=== PATIENT | male | born 1960 | race African-American/Black ===

== ENCOUNTER 2018-09-19 16:56 | Inpatient (IN) | payer MEDICAID ==
[~2018-09-19] VITALS: Ht 182.9 cm; Wt 72.6 kg
--- NOTE | 2018-09-19 17:13 | NUR ---
BIB FAMILY W C/O L KNEE UP TO L HIP/PELVIS PAIN THAT STARTED LAST NIGHT, "WORSE NOW CAN'T MOVE". ALSO W C/O DIARRHEA/LOSING WEIGHT/DIFFICULTY URINATING x 1 MONTH. TO ER BED 9, HOOKED TO MONITOR, CHANGED TO GOWN, PROVIDED W WARM BLANKET, AWAITING MD GÓMEZ.
--- NOTE | 2018-09-19 17:20 | NUR ---
FLAKE DRIER DEGRASSE AT BEDSIDE
[2018-09-19] MEDS ORDERED: ONDANSETRON HCL/PF 4 MG/2 ML VIAL IVP ONE (17:30)
[2018-09-19] MEDS ORDERED: IV NS 0.9% 1,000 ML BAG IV ONE (17:30)
[2018-09-19] MEDS ORDERED: MORPHINE SULFATE INJ 2 MG/ML DISP.SYRIN IV ONE (17:30)
[2018-09-19] MEDS ORDERED: ONDANSETRON HCL/PF 4 MG/2 ML VIAL ONE (17:32)
[2018-09-19] MEDS ORDERED: MORPHINE SULFATE INJ 4 MG/ML DISP.SYRIN ONE (17:32)
[2018-09-19] MEDS ORDERED: KETOROLAC TROMETHAMINE INJ 30 MG/ML VIAL ONE (17:33)
[2018-09-19 17:37] LABS: BASOPHILS % (AUTO) 0.6 % (0.0-2.0); EOSINOPHILS % (AUTO) 0.2 % (0.0-6.0); HEMATOCRIT 36 % (39-51); HEMOGLOBIN 12.4 g/dL (13.5-17.5); LYMPHOCYTES # (AUTO) 0.7 /CMM (0.8-4.8); LYMPHOCYTES % (AUTO) 12.8 % (20.0-44.0); MEAN CORPUSCULAR HGB CONC 34 g/dl (31.0-36.0); MEAN CORPUSCULAR VOLUME 78 fL (80-96); MONOCYTES # (AUTO) 0.6 /CMM (0.1-1.30); NEUTROPHILS # (AUTO) 4.5 /CMM (1.8-8.9); NEUTROPHILS % (AUTO) 76.4 % (43.0-81.0); PLATELET COUNT (AUTO) 314 /CMM (150-450); RED BLOOD CELL COUNT(AUTO) 4.67 MIL/uL (4.5-6.0); WHITE BLOOD COUNT (AUTO) 5.8 K/uL (4.3-11.0)
[2018-09-19 17:44] LABS: CALCIUM, SERUM 8.2 mg/dL (8.5-10.1); CARBON DIOXIDE 25 mmol/L (21-32); CHLORIDE 94 mmol/L (98-107); CREATININE 0.9 mg/dL (0.6-1.3); GLUCOSE 147 mg/dL (74-106); POTASSIUM 3.7 mmol/L (3.5-5.1); SODIUM SERUM 129 mmol/L (136-145); UREA NITROGEN, BLOOD 15 mg/dL (7-18)
[2018-09-19 17:49] LABS: ALANINE AMINOTRANSFERASE 122 U/L (12-78); ALBUMIN 2.3 g/dL (3.4-5.0); ALKALINE PHOSPHATASE 86 U/L (46-116); ASPARTATE AMINOTRANSFERASE 94 U/L (15-37); BILIRUBIN,DIRECT 0.1 mg/dL (0.0-0.2); BILIRUBIN,TOTAL 0.4 mg/dL (0.2-1.0); TOTAL PROTEIN, SERUM 6.9 g/dL (6.4-8.2)
[2018-09-19] MEDS ORDERED: KETOROLAC TROMETHAMINE INJ 30 MG/ML VIAL IV ONE (18:00)
[2018-09-19] MEDS ORDERED: IV NS 0.9% 250 ML IV ONE (18:00)
[2018-09-19] MEDS ORDERED: CT SWABBABLE VALVE TRANS SET 1 EA INFUS.SET MC ONE (18:00)
[2018-09-19 18:14] LABS: BILIRUBIN,URINE SMALL (NEGATIVE); BLOOD, URINE Negative Ery/uL (NEGATIVE); KETONES,URINE Negative (NEGATIVE); LEUKOCYTE ESTERASE ,URINE Negative (NEGATIVE); NITRITE, URINE Negative (NEGATIVE); PH,URINE 5.5 (5.0-8.0); PROTEIN,URINE 100 mg/dl (NEGATIVE); UGLUCOSE 250 MG/DL mg/dL (NEGATIVE)
[2018-09-19 18:17] LABS: APPEARANCE,URINE HAZY (CLEAR); COLOR,URINE DARK YELLOW (YELLOW)
[2018-09-19 18:30] LABS: BACTERIA,URINE Few /HPF (None Seen); RBC,URINE 0-2 /HPF (0-2); SQUAMOUS EPITHELIAL CELL,UR Few /HPF (None Seen); WBC,URINE 0-2 /HPF (0-3)
[2018-09-19] MEDS ORDERED: HYDROMORPHONE 1 MG/1 ML DISP.SYRIN IV ONE (18:30)
[2018-09-19] MEDS ORDERED: HYDROMORPHONE 1 MG/1 ML DISP.SYRIN ONE (18:31)
[2018-09-19] MEDS ORDERED: VANCOMYCIN 1 GM VIAL ONE (18:57)
[2018-09-19] MEDS ORDERED: PIPERACILLIN /TAZOBACTAM 3.375 G VIAL IV ONE (18:57)
[2018-09-19] MEDS ORDERED: VANCOMYCIN 1 GM in IV D5W 250 ML IV ONE (19:00)
[2018-09-19] MEDS ORDERED: PIPERACILLIN /TAZOBACTAM 3.375 G in IV D5W 50 ML IV ONE (19:00)
[2018-09-19] MEDS ORDERED: LIDOCAINE HCL/PF 1% 30 ML SDV ONE (19:03)
--- NOTE | 2018-09-19 19:32 | NUR ---
REPORT GIVEN TO MICHELLE OREILLY FOR RODRICK
--- NOTE | 2018-09-19 19:33 | NUR ---
CALLED [employer]. SQL SSRS SSIS DEVELOPER WAS PAGED.
--- NOTE | 2018-09-19 19:56 | NUR ---
MS BED 207-2 GIVEN
[2018-09-19] MEDS ORDERED: MAGNESIUM HYDROXIDE 30 ML UDC PO PRN (20:30)
[2018-09-19] MEDS ORDERED: ACETAMINOPHEN 325 MG TABLET PO PRN (20:30)
[2018-09-19] MEDS ORDERED: Z GUARD REMEDY 2 OZ OINT TP PRN (20:30)
[2018-09-19] MEDS ORDERED: ONDANSETRON HCL/PF 4 MG/2 ML VIAL IVP PRN (20:30)
[2018-09-19] MEDS ORDERED: MAG HYDROX/AL HYDROX/SIMETH 30 ML UDC PO PRN (20:30)
--- NOTE | 2018-09-19 20:31 | NUR ---
REPORT GIVEN TO RODY OREILLY.
--- NOTE | 2018-09-19 21:00 | NUR ---
RN OPEN NOTES RECEIVED PATIENT FROM ER VIA SONJA WITH FAMILY AT BEDSIDE. A/OX4. NO SIGNS OF DISTRESS OR DISCOMFORT. BREATHING EVEN AND UNLABORED. IV ACCESS IN RAC, PATENT AND INTACT, NO SIGNS OF REDNESS OR INFILTRATION. ORIENTED PATIENT TO UNIT AND ROOM. PATIENT COMPLAINING OF PAIN 7/10 IN L HIP AND TOLERATING AT THIS TIME. BED IN LOW LOCKED POSITION WITH SIDE RAILS X2. CALL LIGHT WITHIN REACH. WILL CONTINUE TO MONITOR.
[2018-09-19] MEDS ORDERED: CEFTRIAXONE 1 G VIAL ONE (21:42)
[2018-09-19] MEDS: CEFTRIAXONE 1 G in IV D5W 50 ML IV SCH (21:54)
[2018-09-19] MEDS: HYDROCODONE/APAP 5/325MG 1 EACH TABLET PO PRN (21:55)
--- NOTE | 2018-09-19 21:55 | NUR ---
RN NOTES ADMINISTERED NORCO 5/325 ORDERED FOR L HIP PAIN 10/10 AT PATIENT REQUEST. WILL CONTINUE TO MONITOR.
[2018-09-19] MEDS: ZOLPIDEM TARTRATE 5 MG TABLET PO PRN (21:56)
[2018-09-19 22:05] VITALS: BP 122/71
[2018-09-20] MEDS ORDERED: MORPHINE SULFATE INJ 2 MG/ML DISP.SYRIN IV PRN
[2018-09-20] MEDS: HYDROCODONE/APAP 5/325MG 1 EACH TABLET PO PRN ×3 (07:00→16:43)
--- NOTE | 2018-09-20 07:15 | NUR ---
RN CLOSING NOTES PATIENT AWAKE IN BED. A/OX4. NO SIGNS OF DISTRESS OR DISCOMFORT. BREATHING EVEN AND UNLABORED. IV ACCESS IN RAC, PATENT AND INTACT, NO SIGNS OF REDNESS OR INFILTRATION. PATIENT COMPLAINING OF L HIP PAIN 12/21, ADMINISTERED NORCO 5/325. ALL NEEDS MET. NO SIGNIFICANT CHANGES THROUGH THE NIGHT. BED IN LOW LOCKED POSITION WITH SIDE RAILS X2. CALL LIGHT WITHIN REACH. ENDORSED TO AM SHIFT FOR RODRICK.
--- NOTE | 2018-09-20 07:36 | NUR ---
MS RN OPENING NOTES RECEIVED PT LAYING IN BED WITH HOB ELEVATED. PT IS A/O X4, AFEBRILE. RESPIRATIONS ARE EVEN AND UNLABORED, NOT IN ANY ACUTE DISTRESS NOTED. PT C/O PAIN 10/10 TO LEFT HIP, WILL MEDICATE ACCORDINGLY AND NOTE EFFECTIVENESS. NO REDNESS OR SWELLING NOTED. DENIES ANY SOB, N/V. IV SITE TO RFA G20 INTACT, NO INFILTRATION NOTED. DRESSING KEPT CLEAN AND DRY. SAFETY MEASURES ARE IN PLACE. AT BEDSIDE. INSTRUCTED PT TO USE CALL LIGHT WHEN ASSISTANCE IS NEEDED, CALL LIGHT IS LEFT WITHIN REACH. WILL MONITOR THROUGHOUT SHIFT FOR CONTINUITY OF CARE.
[2018-09-20 08:00] VITALS: BP 125/77
[2018-09-20] MEDS ORDERED: FEE PK DOSING 1 MIN EA MC ONE (08:07)
[2018-09-20 08:22] LABS: BASOPHILS % (AUTO) 0.2 % (0.0-2.0); EOSINOPHILS % (AUTO) 0.2 % (0.0-6.0); HEMATOCRIT 34 % (39-51); HEMOGLOBIN 11.4 g/dL (13.5-17.5); LYMPHOCYTES # (AUTO) 0.7 /CMM (0.8-4.8); LYMPHOCYTES % (AUTO) 12.3 % (20.0-44.0); MEAN CORPUSCULAR HGB CONC 34 g/dl (31.0-36.0); MEAN CORPUSCULAR VOLUME 77 fL (80-96); MONOCYTES # (AUTO) 0.4 /CMM (0.1-1.30); MONOCYTES % (AUTO) 6.7 % (2.0-12.0); NEUTROPHILS # (AUTO) 4.7 /CMM (1.8-8.9); NEUTROPHILS % (AUTO) 80.6 % (43.0-81.0); PLATELET COUNT (AUTO) 282 /CMM (150-450); RED BLOOD CELL COUNT(AUTO) 4.37 MIL/uL (4.5-6.0); WHITE BLOOD COUNT (AUTO) 5.9 K/uL (4.3-11.0)
[2018-09-20 08:48] LABS: CREATININE 0.9 mg/dL (0.6-1.3); MAGNESIUM 1.9 mg/dL (1.8-2.4); PHOSPHORUS 2.6 mg/dL (2.5-4.9); POTASSIUM 4.2 mmol/L (3.5-5.1)
[2018-09-20] MEDS: VANCOMYCIN 0.75 GM in IV D5W 250 ML IV SCH ×2 (09:32→16:41)
--- NOTE | 2018-09-20 12:20 | NUR ---
MS RN NOTES-- PT SEEN AND EXAMINED BY ANNIA OG. CT GUIDED ASPIRATION TO BE DONE TODAY. ADVANCED MANAGER AWARE AND PROCEDURE WILL BE DONE AT 2PM. PT AND MADE AWARE AT BEDSIDE AND AGREED.
--- NOTE | 2018-09-20 14:15 | NUR ---
MS RN NOTES-- PT P/U BY RADIOLOGY VIA GURNEY IN STABLE CONDITION.
[2018-09-20] MEDS: HYDROMORPHONE 1 MG/1 ML DISP.SYRIN IV PRN ×2 (14:54→20:54)
--- NOTE | 2018-09-20 15:18 | NUR ---
ICU/RN: S/P CT AND US GUIDED L HIP DRAINAGE Pt back in room, s/p procedure. Given Dilaudid 1mg IVP in CT; unable to scan; pt c/o 01/20 pain. Local anesthesia given by MD. Bedside report given to RN for RODRICK.
--- NOTE | 2018-09-20 15:18 | NUR ---
MS RN NOTES-- PT CAME BACK FROM RADIOLOGY VIA BASILIO IN STABLE CONDITION.
[2018-09-20 16:00] VITALS: BP 133/73
--- NOTE | 2018-09-20 18:47 | NUR ---
MS RN CLOSING NOTES ALL DUE MEDS GIVEN, NEEDS MET AND RENDERED. PT IS A/O X4, AFEBRILE. RESPIRATIONS ARE EVEN AND UNLABORED, NOT IN ANY ACUTE DISTRESS NOTED. PT DENIES ANY PAIN AT THIS TIME, NO C/O SOB, N/V. IV TO RFA INTACT, NO INFILTRATION NOTED. DRESSING KEPT CLEAN AND DRY. SAFETY MEASURES ARE IN PLACE. REMINDED PT TO USE CALL LIGHT WHEN ASSISTANCE IS NEEDED, CALL LIGHT IS LEFT WITHIN REACH. WILL ENDORSE TO NEXT SHIFT FOR CONTINUITY OF CARE.
--- NOTE | 2018-09-20 19:25 | NUR ---
MS RN OPENING NOTES: RECEIVED PT ON ROOM AIR AND IS TOLERATING WELL. AT BEDSIDE. NO SOB NOTED. NO S/S OF DISTRESS. PT HAS IV AND IS BEING INFUSED WITH VANCO AT 250ML/HR AT THIS TIME. BED KEPT IN LOW, LOCKED POSITION, AND SIDE RAILS X 2UP. WILL CONTINUE TO MONITOR PT.
[2018-09-20 20:29] VITALS: BP 122/71
[2018-09-20] MEDS: CEFTRIAXONE 1 G in IV D5W 50 ML IV SCH (20:37)
--- NOTE | 2018-09-20 20:59 | NUR ---
MS RN NOTES: PT COMPLAINING OF 10/10 L HIP PAIN. PT WAS ADMINISTERED DILAUDID 1MG IV. WILL CONTINUE TO MONITOR.
[2018-09-20] MEDS: ZOLPIDEM TARTRATE 5 MG TABLET PO PRN (21:17)
--- NOTE | 2018-09-20 21:30 | NUR ---
MS RN NOTES: PT REQUESTING FOR SLEEPING AID. PT WAS ADMINISTERED AMBIEN 5MG PO. WILL CONTINUE TO MONITOR.
[2018-09-21] MEDS: VANCOMYCIN 0.75 GM in IV D5W 250 ML IV SCH ×2 (00:07→08:49)
[2018-09-21] MEDS: HYDROCODONE/APAP 5/325MG 1 EACH TABLET PO PRN ×2 (00:11→16:24)
--- NOTE | 2018-09-21 00:13 | NUR ---
MS RN NOTES: PT COMPLAINING OF 5/10 L HIP PAIN. PT IS BOTHERED AND CANNOT GO TO SLEEP EVEN AFTER THE AMBIEN. PT WAS ADMINISTERED NORCO 5 PO. WILL CONTINUE TO MONITOR.
[2018-09-21 06:58] LABS: CREATININE 0.7 mg/dL (0.6-1.3); POTASSIUM 4.1 mmol/L (3.5-5.1)
--- NOTE | 2018-09-21 07:24 | NUR ---
MS RN CLOSING NOTES: PT IN BED AND ON HIS PHONE. AT BEDSIDE. IV REMAINS INTACT AND IS CURRENTLY BEING INFUSED WITH IV NS AT TKO. PAIN MANAGED AT THIS TIME. BED KEPT IN LOW, LOCKED POSITION, AND SIDE RAILS X2UP. ENDORSED TO AM NURSE FOR RODRICK.
--- NOTE | 2018-09-21 07:33 | NUR ---
MS RN OPENING NOTES RECEIVED PT LAYING IN BED WITH HOB ELEVATED. PT IS A/O X4, AFEBRILE. RESPIRATIONS ARE EVEN AND UNLABORED, NOT IN ANY ACUTE DISTRESS NOTED. PT DENIES ANY PAIN AT THIS TIME, DENIES ANY SOB, N/V. IV SITE TO RFA G20 INTACT, NO INFILTRATION NOTED. DRESSING KEPT CLEAN AND DRY. SAFETY MEASURES ARE IN PLACE. AT BEDSIDE. INSTRUCTED PT TO USE CALL LIGHT WHEN ASSISTANCE IS NEEDED, CALL LIGHT IS LEFT WITHIN REACH. WILL MONITOR THROUGHOUT SHIFT FOR CONTINUITY OF CARE.
[2018-09-21 08:00] VITALS: BP 127/73
[2018-09-21] MEDS: HYDROMORPHONE 1 MG/1 ML DISP.SYRIN IV PRN ×2 (09:00→23:28)
--- NOTE | 2018-09-21 10:00 | NUR ---
MS RN NOTES-- PT SEEN BY PHYSICAL THERAPY, PT ABLE TO WALK IN HALLWAY WITH FWW.
--- NOTE | 2018-09-21 12:24 | NUR ---
MS RN NOTES-- PT ABLE TO MAKE NEEDS KNOWN, NEEDS MET AND RENDERED. PT IS NOT IN ANY APPARENT DISTRESS NOTED. WILL CONTINUE TO MONITOR.
--- NOTE | 2018-09-21 14:26 | NUR ---
TEXTED DR. GOOD FOR MRI L SPINE APPROVAL.
[2018-09-21 16:00] VITALS: BP 112/60
[2018-09-21] MEDS: VANCOMYCIN 1 GM in IV D5W 250 ML IV SCH (16:24)
[2018-09-21] MEDS: LACTOBACILLUS RHAMNOSUS GG 1 EACH CAP.SPRINK PO SCH (16:24)
--- NOTE | 2018-09-21 17:30 | NUR ---
MS RN NOTES-- MRI WWO CONTRAST CONSENTS SIGNED. NOTIFIED RADIOLOGY.
--- NOTE | 2018-09-21 19:36 | NUR ---
MS RN OPENING NOTES: PT STILL IN MRI. AT BEDSIDE WAITING FOR PT TO COME BACK.
[2018-09-21 20:33] VITALS: BP 121/72
--- NOTE | 2018-09-21 20:33 | NUR ---
MS OREILLY NOTES: PT BACK FROM MRI. Addendum: 09/21/18 at 2333 by BRITTNY WRIGHT RN PT IS A/X04. IV REMAINS INTACT. CURRENTLY H/L. NO SOB. NO S/S OF DISTRESS. 2 FAMILY MEMBERS AT BEDSIDE. BED KEPT IN LOW, LOCKED POSITION, AND SIDE RAILS X 2UP. WILL CONTINUE TO MONITOR PT .
--- NOTE | 2018-09-21 21:10 | NUR ---
MS RN NOTES: INFORMED EXAMINATION PROCTOR MIRYAM MENDES THAT PT REQUESTING FOR SHOWER. PT AMBULATED WITH PT TODAY AND IS USING WALKER NOW. OK TO SHOWER ONLY WITH ASSIST. NOTIFIED PT WELL AND .
[2018-09-21] MEDS: CEFTRIAXONE 1 G in IV D5W 50 ML IV SCH (21:12)
--- NOTE | 2018-09-21 21:20 | NUR ---
MS RN NOTES: PT CHANGED MIND AND WOULD LIKE TO SHOWER TOMORROW AM INSTEAD HE IS EXHAUSTED FROM MRI.
--- NOTE | 2018-09-21 21:40 | NUR ---
MS RN NOTES: PT GIVEN PRUNE JUICE HE FEELS CONSTIPATED. PT GIVEN 3 PRUNE JUICE.
--- NOTE | 2018-09-21 23:31 | NUR ---
MS RN NOTES: PT WAKING UP STARTED COMPLAINING OF 8/10 L HIP PAIN. PT WAS ADMINISTERED DILAUDID 1MG IV. WILL CONTINUE TO MONITOR.
[2018-09-21] MEDS: ZOLPIDEM TARTRATE 5 MG TABLET PO PRN (23:56)
--- NOTE | 2018-09-22 | NUR ---
MS RN NOTES: PT REQUESTING FOR SLEEPING PILL PAIN IS NOT SUBSIDING. PT ADMINISTERED AMBIEN 5MG PO. WILL CONTINUE TO MONITOR.
[2018-09-22] MEDS: VANCOMYCIN 1 GM in IV D5W 250 ML IV SCH ×2 (00:41→08:49)
[2018-09-22] MEDS: HYDROCODONE/APAP 5/325MG 1 EACH TABLET PO PRN ×2 (00:50→19:48)
--- NOTE | 2018-09-22 03:42 | NUR ---
MS OREILLY OPENING NOTES Received patient A/O x4, awake on semi-Mayers's position on bed. With patent peripheral IV line LAC G#18, SL. With minimal pain on L hip, refused to take medicine at this time. Instructed patient about his pain medications, its frequency, availability and indications. Patient verbalized understanding. With urinal at bedside. On fall precautions, call light within easy reach. Will continue to monitor accordingly. Addendum: 09/23/18 at 0345 by PETRA JAVIER RN wrong date and time.
--- NOTE | 2018-09-22 06:21 | NUR ---
MS RN CLOSING NOTES: ALL NEEDS WERE ATTENDED AND ANTICIPATED FOR. PT RESTING IN BED COMFORTABLY AT THIS TIME WATCHING TELEVISION. NO SOB NOTED. NO S/S OF DISTRESS. IV REMAINS INTACT. CURRENTLY H/L. BED KEPT IN LOW, LOCKED POSITION, AND SIDE RAILS X 2UP. INSTRUCTED PT TO USE CALL LIGHT FOR ASSISTANCE. WILL ENDORSE TO AM NURSE FOR RODRICK.
[2018-09-22 06:51] LABS: BASOPHILS % (AUTO) 0.3 % (0.0-2.0); EOSINOPHILS % (AUTO) 1.4 % (0.0-6.0); HEMATOCRIT 36 % (39-51); HEMOGLOBIN 12.3 g/dL (13.5-17.5); LYMPHOCYTES # (AUTO) 1.4 /CMM (0.8-4.8); LYMPHOCYTES % (AUTO) 27.5 % (20.0-44.0); MEAN CORPUSCULAR HGB CONC 34 g/dl (31.0-36.0); MEAN CORPUSCULAR VOLUME 78 fL (80-96); MONOCYTES # (AUTO) 0.6 /CMM (0.1-1.30); MONOCYTES % (AUTO) 11.1 % (2.0-12.0); NEUTROPHILS % (AUTO) 59.7 % (43.0-81.0); PLATELET COUNT (AUTO) 387 /CMM (150-450); RED BLOOD CELL COUNT(AUTO) 4.65 MIL/uL (4.5-6.0)
[2018-09-22 07:07] LABS: CALCIUM, SERUM 8.4 mg/dL (8.5-10.1); CREATININE 0.7 mg/dL (0.6-1.3); MAGNESIUM 2.2 mg/dL (1.8-2.4); PHOSPHORUS 4.1 mg/dL (2.5-4.9); POTASSIUM 4.5 mmol/L (3.5-5.1)
--- NOTE | 2018-09-22 07:30 | NUR ---
MS RN OPENING NOTE RECEIVED PT IN BED, ALERT AND ORIENTED X4, DENIES CHEST PAIN, N/V, BREATHING IS EVEN AND UNLABORED ON ROOM AIR. NO ACUTE DISTRESS NOTED AT THIS TIME. RIGHT AC #18G IS SALINE LOCKED WITHOUT REDNESS OR SWELLING. ALL NEEDS ATTENDED TO. FIANCE AT THE BEDSIDE. BED IS LOCKED AND IN LOWEST POSITION, SIDE RAILS UP X2, BED ALARM ON, CALL LIGHT AND POSSESSIONS WITHIN REACH.
[2018-09-22 08:00] VITALS: BP 108/64
[2018-09-22] MEDS: LACTOBACILLUS RHAMNOSUS GG 1 EACH CAP.SPRINK PO SCH ×2 (08:49→17:35)
--- NOTE | 2018-09-22 11:00 | NUR ---
MS RN NOTE CHUNG MORALES PROVIDED CONTACT INFORMATION FOR HERSELF ([phone]) AND PT BROTHER CAR REA ([phone]) AND STATED TO CALL EITHER FOR QUESTIONS OR CONCERNS SINCE SHE WILL BE RETURNING TO [place] FOR WORK. PER CHUNG SHE DOES NOT WANT PT TO HAVE ANY MORE CONTRAST FOR IMAGING ADMINISTERED ANYMORE. EDUCATION PROVIDED. PLACED INFORMATION IN CHART.
[2018-09-22] MEDS ORDERED: CT SWABBABLE VALVE TRANS SET 1 EA INFUS.SET MC ONE (11:56)
[2018-09-22] MEDS ORDERED: IV NS 0.9% 250 ML IV ONE (11:56)
[2018-09-22] MEDS ORDERED: IOHEXOL-350 100 ML VIAL IV ONE (11:56)
--- NOTE | 2018-09-22 12:28 | NUR ---
MS RN NOTE REPORTED TO PRIMARY HOSPITALIST THAT LAB REPORTED BLOOD CX SHOWS GRAM POSITIVE COCCI IN CLUSTERS. NO NEW ORDERS AT THIS TIME.
[2018-09-22] MEDS ORDERED: MAGNESIUM HYDROXIDE 30 ML UDC PO PRN (15:00)
[2018-09-22 16:00] VITALS: BP 118/69
[2018-09-22] MEDS ORDERED: GADODIAMIDE 5 MMOL/10 ML VIAL IJ ONE (16:13)
[2018-09-22] MEDS ORDERED: GADODIAMIDE 2.5 MMOL/5 ML VIAL IJ ONE (16:13)
--- NOTE | 2018-09-22 17:10 | NUR ---
MS RN NOTE SPOKE WITH NAVJOT OGDEN FOR ID WHO INQUIRED TO WHY GLUCOSE, LDH, PROTEIN, WBC BODY FLUID ANALYSIS SAMPLES HAVE NOT BEEN COMPLETED YET, WILL FOLLOW UP WITH LAB.
--- NOTE | 2018-09-22 17:15 | NUR ---
MS RN NOTE PER FLOR IN LAB, BECAUSE ONLY 1ML WAS ABLE TO OBTAINED FROM THE HIP, THE ENTIRE 1ML SAMPLE WAS SENT TO PATHOLOGY AND NONE OF THE OTHER LAB TESTS INCLUDING GLUCOSE, WBC, PROTEIN, LDH WERE COMPLETED DUE TO INSUFFICIENT AMOUNT OF SAMPLE. CALLED PATHOLOGY AND LEFT VOICEMAIL FOR JEF TO GET SPECIFICALLY WHAT PATHOLOGY IS BEING COMPLETED, AWAITING CALL BACK.
--- NOTE | 2018-09-22 17:19 | NUR ---
MS RN NOTE INFORMED NAVJOT GODEN FOR ID REGARDING LAB AND PATHOLOGY. NO NEW ORDERS AT THIS TIME.
[2018-09-22] MEDS ORDERED: RIFAMPIN 300 MG CAPSULE PO SCH (17:30)
[2018-09-22] MEDS ORDERED: FEE PK DOSING 1 MIN EA MC ONE (17:46)
--- NOTE | 2018-09-22 18:14 | NUR ---
MS RN NOTE REQUESTED NAFCILLIN TO BE SENT FROM [facility] IN [facility], AWAITING RECEIPT.
[2018-09-22] MEDS: NAFCILLIN 2 G in IV D5W 50 ML IV SCH ×2 (18:30→23:11)
--- NOTE | 2018-09-22 18:39 | NUR ---
MS RN CLOSING NOTE PT IN BED, ALERT AND ORIENTED X4, DENIES CHEST PAIN, N/V, BREATHING IS EVEN AND UNLABORED ON ROOM AIR. NO ACUTE DISTRESS NOTED AT THIS TIME. RIGHT AC #18G IS INFUSING ORDERED WITHOUT REDNESS OR SWELLING. ADLS PROVIDED. ALL NEEDS ATTENDED TO. BED IS LOCKED AND IN LOWEST POSITION, SIDE RAILS UP X2, BED ALARM ON, CALL LIGHT AND POSSESSIONS WITHIN REACH. WILL ENDORSE TO ANIMAL SCIENCE PROFESSOR NURSE FOR CONTINUITY OF CARE.
--- NOTE | 2018-09-22 19:20 | NUR ---
MS RN OPENING NOTES Received patient A/O x4, awake on semi-Mayers's position on bed. With patent peripheral IV line LAC G#18, SL. With minimal pain on L hip, refused to take medicine at this time. Instructed patient about his pain medications, its frequency, availability and indications. Patient verbalized understanding. With urinal at bedside. On fall precautions, call light within easy reach. Will continue to monitor accordingly.
[2018-09-22 20:00] VITALS: BP 121/75
[2018-09-22] MEDS ORDERED: GENTAMICIN 500 MG in IV D5W 100 ML IV SCH (20:00)
[2018-09-22] MEDS: CEFTRIAXONE 1 G in IV D5W 50 ML IV SCH (21:14)
[2018-09-22] MEDS: RIFAMPIN 300 MG CAPSULE PO SCH (21:14)
[2018-09-22] MEDS: ZOLPIDEM TARTRATE 5 MG TABLET PO PRN (21:58)
[2018-09-23] MEDS: RIFAMPIN 300 MG CAPSULE PO SCH ×3 (04:54→20:04)
[2018-09-23] MEDS: NAFCILLIN 2 G in IV D5W 50 ML IV SCH ×3 (05:46→17:46)
[2018-09-23 06:34] LABS: BASOPHILS % (AUTO) 0.2 % (0.0-2.0); EOSINOPHILS % (AUTO) 1.1 % (0.0-6.0); HEMATOCRIT 37 % (39-51); HEMOGLOBIN 12.6 g/dL (13.5-17.5); LYMPHOCYTES # (AUTO) 1.3 /CMM (0.8-4.8); LYMPHOCYTES % (AUTO) 20.5 % (20.0-44.0); MEAN CORPUSCULAR HGB CONC 35 g/dl (31.0-36.0); MEAN CORPUSCULAR VOLUME 77 fL (80-96); MONOCYTES # (AUTO) 0.4 /CMM (0.1-1.30); MONOCYTES % (AUTO) 7.1 % (2.0-12.0); NEUTROPHILS # (AUTO) 4.3 /CMM (1.8-8.9); NEUTROPHILS % (AUTO) 71.1 % (43.0-81.0); PLATELET COUNT (AUTO) 460 /CMM (150-450); RED BLOOD CELL COUNT(AUTO) 4.73 MIL/uL (4.5-6.0); WHITE BLOOD COUNT (AUTO) 6.1 K/uL (4.3-11.0)
--- NOTE | 2018-09-23 06:40 | NUR ---
MS RN CLOSING NOTES Patient asleep on on bed at this time. On RA, no SOB/respiratory distress noted. All nursing needs attended. No new complaints made. Afebrile the whole shift. All due meds given as ordered, no ASE noted. Kept clean, dry and comfortable. On fall precautions, call light within easy reach. Endorsed to the next shift.
--- NOTE | 2018-09-23 07:30 | NUR ---
MS/RN Patient received Patient received from shift mgr. A/O X4, continues to complain of pain scale 10/10, stating that the medication prescribed for him is not working. Will ask MD for pain management consult. Vital signs stable, cely allowed for all fears and concerns to be addressed. Will continue to monitor and ensure safety.
[2018-09-23 08:00] VITALS: BP 103/68
[2018-09-23] MEDS: LACTOBACILLUS RHAMNOSUS GG 1 EACH CAP.SPRINK PO SCH ×2 (08:50→17:46)
[2018-09-23] MEDS: ENSURE ENLIVE CHOC 237 ML CAN PO SCH (08:52)
[2018-09-23] MEDS: HYDROMORPHONE 1 MG/1 ML DISP.SYRIN IV PRN ×2 (08:52→22:41)
--- NOTE | 2018-09-23 09:00 | NUR ---
MS/RN S/B Dr Bean Seen by Dr Bean - continue with current IVAB, picc line to be inserted once blood cultures are negative.
[2018-09-23 09:19] LABS: CALCIUM, SERUM 8.8 mg/dL (8.5-10.1); CREATININE 0.8 mg/dL (0.6-1.3); MAGNESIUM 2.1 mg/dL (1.8-2.4); PHOSPHORUS 4.5 mg/dL (2.5-4.9); POTASSIUM 5.3 mmol/L (3.5-5.1)
--- NOTE | 2018-09-23 09:20 | NUR ---
MS/RN Pain consult Dr Fischer contacted for pain management consult.
--- NOTE | 2018-09-23 14:00 | NUR ---
MS/RN BM Large BM.
[2018-09-23 16:00] VITALS: BP 118/71
--- NOTE | 2018-09-23 18:25 | NUR ---
MS/RN End note Patient remains in stable condition. Continue to wait for pain consult with Dr Fischer. All needs addressed, will endorse to mini shifter.
--- NOTE | 2018-09-23 19:05 | NUR ---
RN MS OPENING NOTES RECEIVED PATIENT IN BED AWAKE ALERT AND ORIENTED X4, RESPIRATIONS EVEN AND UNLABORED WITH EQUAL RISE AND FALL OF CHEST, DENIES ANY PAIN OR DISCOMFORT AT THIS TIME,URINAL AT BEDSIDE WITHIN REACH, NOTED URINE SANDRA CLEAR COLOR, FLUIDS OFFERED AND PROVIDED, IV SITE TO RIGHT FA #20G INTACT AND PATENT, NO REDNESS, NO INFILTRATION PRESENT, ORIENTED TO STAFF AND CALL LIGHT AND KEPT WITHIN REACH, SAFETY PRECAUTIONS IN PLACE, LOW BED AND LOCKED, DISCUSSED PLAN OF CARE WITH PATIENT. ALL NEEDS ATTENDED AT THIS TIME, WILL CONTINUE TO MONITOR AND ADDRESS NEEDS THROUGHOUT SHIFT.
[2018-09-23] MEDS: GENTAMICIN 300 MG in IV D5W 100 ML IV SCH (19:59)
[2018-09-23 20:00] VITALS: BP 124/73
[2018-09-23 20:38] VITALS: BP 124/73
[2018-09-23] MEDS: ZOLPIDEM TARTRATE 5 MG TABLET PO PRN (21:17)
--- NOTE | 2018-09-23 21:17 | NUR ---
RN MS NOTES PATIENT REQUESTING FOR SLEEP AIDE. PRN AMBIEN OFFERED PT AGREED. PRN AMBIEN GIVEN ORDERED WILL CONTINUE TO MONITOR FOR EFFECTIVENESS.
--- NOTE | 2018-09-23 22:41 | NUR ---
RN MS NOTES PATIENT COMPLAINT OF PAIN TO LEFT HIP 10/10 ACHING. REQUESTING FOR PAIN MEDICATION DILAUDID. VS WNL DILAUDID PRN GIVEN ORDERED FOR PAIN WILL CONTINUE TO MONITOR FOR EFFECTIVENESS.
--- NOTE | 2018-09-24 | NUR ---
RN MS NOTES NOTED PATIENT SLEEPING AT THIS TIME.
[2018-09-24] MEDS: NAFCILLIN 2 G in IV D5W 50 ML IV SCH ×5 (00:41→23:02)
--- NOTE | 2018-09-24 00:48 | NUR ---
RN MS NOTES PATIENT NOTED AWAKE AT THIS TIME, STATING HE IS IN PAIN AND "THE PAIN TOOK OVER THE SLEEP MEDICATION" OFFERED NORAZ. AGREED TO TAKE, WILL ADMINISTER.
[2018-09-24] MEDS: HYDROCODONE/APAP 5/325MG 1 EACH TABLET PO PRN (00:49)
--- NOTE | 2018-09-24 00:49 | NUR ---
RN MS NOTES PATIENT COMPLAINT OF PAIN TO LEFT HIP STATES 01/20 OFFERED NORCO PRN. PATIENT AGREED TO TAKE . NORCO 5/325MG PRN GIVEN ORDERED WILL CONTINUE TO MONITOR FOR EFFECTIVENESS.
[2018-09-24] MEDS: RIFAMPIN 300 MG CAPSULE PO SCH ×3 (05:51→20:13)
[2018-09-24] MEDS: HYDROMORPHONE 1 MG/1 ML DISP.SYRIN IV PRN ×2 (05:52→21:31)
--- NOTE | 2018-09-24 05:52 | NUR ---
RN MS NOTES PATIENT COMPLAINT OF PAIN TO LEFT LEG/HIP AREA 10/10 PAIN MEDICATION OFFERED AGREED TO DILAUDID VS WNL 120/75,67,18,100% WILL CONTINUE TO MONITOR FOR EFFECTIVENESS.
[2018-09-24 06:49] LABS: BASOPHILS % (AUTO) 0.3 % (0.0-2.0); HEMATOCRIT 36 % (39-51); HEMOGLOBIN 12.1 g/dL (13.5-17.5); LYMPHOCYTES # (AUTO) 1.5 /CMM (0.8-4.8); LYMPHOCYTES % (AUTO) 27.8 % (20.0-44.0); MEAN CORPUSCULAR HGB CONC 34 g/dl (31.0-36.0); MEAN CORPUSCULAR VOLUME 78 fL (80-96); MONOCYTES # (AUTO) 0.5 /CMM (0.1-1.30); MONOCYTES % (AUTO) 9.9 % (2.0-12.0); NEUTROPHILS # (AUTO) 3.3 /CMM (1.8-8.9); PLATELET COUNT (AUTO) 453 /CMM (150-450); RED BLOOD CELL COUNT(AUTO) 4.57 MIL/uL (4.5-6.0); WHITE BLOOD COUNT (AUTO) 5.4 K/uL (4.3-11.0)
--- NOTE | 2018-09-24 06:50 | NUR ---
RN MS CLOSING NOTES PATIENT IN BED AWAKE ALERT AND ORIENTED X4, RESPIRATIONS EVEN AND UNLABORED WITH EQUAL RISE AND FALL OF CHEST, DENIES ANY PAIN OR DISCOMFORT AT THIS TIME,URINAL AT BEDSIDE WITHIN REACH PROVIDED 2 URINALS AND FREQUENTLY EMPTIED OUT THROUGHOUT SHIFT AND CLEANSED PROPERLY, NOTED URINE SANDRA CLEAR COLOR, FLUIDS OFFERED AND PROVIDED REQUESTED, IV SITE TO RIGHT FA #20G INTACT AND PATENT, NO REDNESS, NO INFILTRATION PRESENT, CALL LIGHT KEPT WITHIN REACH, SAFETY PRECAUTIONS IN PLACE, LOW BED AND LOCKED, . ALL NEEDS ATTENDED AT THIS TIME, WILL CONTINUE TO MONITOR AND ENDORSE TO NEXT SHIFT, PATIENT STATES "NO PAIN AT THIS TIME", DILAUDID EFFECTIVE.
[2018-09-24 06:59] LABS: ALBUMIN 2.1 g/dL (3.4-5.0); BILIRUBIN,DIRECT 0.1 mg/dL (0.0-0.2); BILIRUBIN,TOTAL 0.4 mg/dL (0.2-1.0); CALCIUM, SERUM 9.1 mg/dL (8.5-10.1); CREATININE 0.8 mg/dL (0.6-1.3); PHOSPHORUS 4.9 mg/dL (2.5-4.9); POTASSIUM 4.6 mmol/L (3.5-5.1); TOTAL PROTEIN, SERUM 6.8 g/dL (6.4-8.2)
--- NOTE | 2018-09-24 07:34 | NUR ---
RN OPENING NOTE PT WAS RECEIVED IN BED AT LOWEST AND LOCKED POSITION WITH SIDE RAILS UP X2, A/O X4 BREATHING EVEN AND UNLABORED ON RA, IV IS PATENT AND INTACT, INFORMED BY NIGHT RN THAT PT WILL RECEIVE 6 WEEK COURSE OF ABX AND WILL NEED PICC UPON D/C, ALSO AWAITING PAIN MANAGEMENT CONSULT, SAFETY PRECAUTIONS IN PLACE, CALL LIGHT WITHIN REACH, WILL MONITOR ACCORDINGLY
[2018-09-24] MEDS: LACTOBACILLUS RHAMNOSUS GG 1 EACH CAP.SPRINK PO SCH ×2 (08:11→17:05)
[2018-09-24] MEDS: ENSURE ENLIVE CHOC 237 ML CAN PO SCH (08:48)
[2018-09-24 09:12] VITALS: BP 121/70
[2018-09-24] MEDS ORDERED: HYDR-3972 PO (11:57)
[2018-09-24] MEDS ORDERED: ACET325T53 PO (11:57)
[2018-09-24] MEDS ORDERED: ALLA266C2 TP (11:57)
[2018-09-24] MEDS ORDERED: MAGN400O6 PO (11:58)
[2018-09-24] MEDS ORDERED: LACT-54 PO (11:58)
[2018-09-24] MEDS ORDERED: LACT1CAP72 PO (11:58)
[2018-09-24] MEDS ORDERED: GENT80PI6 IV (11:58)
[2018-09-24] MEDS ORDERED: MAG30ORA PO (11:58)
[2018-09-24] MEDS ORDERED: NAFC2FRO2 IV (11:58)
[2018-09-24] MEDS ORDERED: ZOLP5TAB2 PO (11:58)
--- NOTE | 2018-09-24 14:00 | NUR ---
RN NOTE ISHAN PICC INSERTED AT THIS TIME
[2018-09-24 16:22] VITALS: BP 131/83
--- NOTE | 2018-09-24 18:04 | NUR ---
RN NOTED INFORMED BY CM THAT PT MOST LIKELY WONT BE TRANSFERRED OUT UNTIL TOMORROW
--- NOTE | 2018-09-24 18:29 | NUR ---
RN CLOSING NOTE PT IN BED AT LOWEST AND LOCKED POSITION WITH SIDE RAILS UP X2, A/O X4 BREATHING EVEN AND UNLABORED ON RA, IV IS PATENT AND INTACT, SAFETY PRECAUTIONS IN PLACE, CALL LIGHT WITHIN REACH, ALL NEEDS ATTENDED TO, WILL ENDORSE TO DATASTAGE CONSULTANT RN FOR RODRICK.
--- NOTE | 2018-09-24 20:03 | NUR ---
MS RN NOTES RECEIVED PATIENT ASLEEP IN BED WITH NO DISTRESS NOTED. CALL LIGHT WITHIN REACH. PICC LINE INTACT AND PATENT. ROOM FREE OF CLUTTER AND ALL BELONGINGS KEPT NEAR BEDSIDE. WILL CONTINUE TO MONITOR.
[2018-09-24] MEDS: GENTAMICIN 300 MG in IV D5W 100 ML IV SCH (20:13)
[2018-09-24] MEDS: ZOLPIDEM TARTRATE 5 MG TABLET PO PRN (23:02)
[2018-09-25] MEDS: HYDROMORPHONE 1 MG/1 ML DISP.SYRIN IV PRN ×2 (03:54→14:37)
[2018-09-25] MEDS: RIFAMPIN 300 MG CAPSULE PO SCH ×2 (04:01→14:33)
[2018-09-25] MEDS: NAFCILLIN 2 G in IV D5W 50 ML IV SCH ×3 (05:47→17:15)
--- NOTE | 2018-09-25 06:45 | NUR ---
MS RN NOTES PATIENT AWAKE IN BED WITH NO DISTRESS NOTED. PICC LINE INTACT AND PATENT. ALL DUE MEDS GIVEN ORDERED WITH NO ASE NOTED. NO FURTHER C/O PAIN OR DISCOMFORT. BED IN LOW LOCK SETTING. ROOM FREE OF CLUTTER AND BELONGINGS KEPT NEAR BEDSIDE. WILL ENDORSE TO ONCOMING SHIFT.
[2018-09-25 07:35] LABS: CALCIUM, SERUM 8.7 mg/dL (8.5-10.1); CREATININE 0.9 mg/dL (0.6-1.3); POTASSIUM 4.4 mmol/L (3.5-5.1)
[2018-09-25 08:00] VITALS: BP 128/77
[2018-09-25] MEDS: ENSURE ENLIVE CHOC 237 ML CAN PO SCH (08:28)
[2018-09-25] MEDS: LACTOBACILLUS RHAMNOSUS GG 1 EACH CAP.SPRINK PO SCH ×2 (08:28→17:15)
[2018-09-25 16:00] VITALS: BP 122/68
--- NOTE | 2018-09-25 16:45 | NUR ---
report called to Cherelle OREILLY from [facility]
--- NOTE | 2018-09-25 18:10 | NUR ---
patient cleared by MD for d/c to SNF. Patient alert and oriented x4 , VS are stable , breathing unlabored and even on room air. Patient premedicated before transportation.Education and d/c instructions provided to patient ;patient verbalized understanding and sighed all papers. Valuable form sighed and all belongings with the patient including walker.Patient going to facility with HERRERA PICC line intact and patent , flushing well. Patient refused to take d/c picture. Patient picked up by ambulance.
[2018-09-25] MEDS: HYDROCODONE/APAP 5/325MG 1 EACH TABLET PO PRN (18:15)
[2018-09-25 19:06] LABS: *HIV-1 RNA BY PCR <20 copies/mL (.)
== END 2018-09-25 18:15 | DRG 720 ==
LOC: ER 17:00 → MEDSG2 20:02
PROVIDERS: ADMIT Family Medicine; ATTEND Student in an Organized Health Care Education/Training Program
DX: A41.02 Sepsis due to Methicillin resistant Staphylococcus aureus (principal); I33.9 Acute and subacute endocarditis, unspecified; E43 Unspecified severe protein-calorie malnutrition; M00.9 Pyogenic arthritis, unspecified; E87.1 Hypo-osmolality and hyponatremia; Z79.82 Long term (current) use of aspirin; Z88.8 Allergy status to other drugs, medicaments and biological substances; D63.8 Anemia in other chronic diseases classified elsewhere; E86.1 Hypovolemia; R73.9 Hyperglycemia, unspecified; M00.852 Arthritis due to other bacteria, left hip; M25.78 Osteophyte, vertebrae; M48.07 Spinal stenosis, lumbosacral region; M54.17 Radiculopathy, lumbosacral region; M47.9 Spondylosis, unspecified; I70.8 Atherosclerosis of other arteries; D18.03 Hemangioma of intra-abdominal structures; N28.1 Cyst of kidney, acquired
CPT/HCPCS: 36415; 36569; 71045-TC; 72157-TC; 72158-TC; 73701-TC; 74178; 75989; 75989-TC; 80048-TC; 80061-TC; 80076-TC; 80170-TC; 80202-TC; 80305; 81000-TC; 83605-TC; 83735-TC; 83935-TC; 84100-TC; 84484-TC; 85025-TC; 85652-TC; 85730-TC; 86140-TC; 87040-TC; 87081-TC; 87491; 87536; 87591; 87806; 88112-TC; 88305-TC; 88312-TC; 93307-TC; 97116-TC; 97530-TC; A6403; A9579; C1751; G0378; J0696; J1170; J1580; J1885; J2270; J2405; J2543; J3370; J3490; J7030; J7050; J7060; Q9967

== ENCOUNTER 2018-09-29 14:49 | Emergency (ER) | payer MEDICAID ==
[~2018-09-29] VITALS: Ht 182.9 cm; Wt 71.2 kg
[~2018-09-29 14:49] MED LIST: ACET325T53 PO; ALLA266C2 TP; GENT80PI6 IV; HYDR-3972 PO; LACT-54 PO; LACT1CAP72 PO; MAG30ORA PO; MAGN400O6 PO; NAFC2FRO2 IV; ZOLP5TAB2 PO
--- NOTE | 2018-09-29 15:30 | NUR ---
DIAZ MCHUGH FOR PICC LINE PLACEMENT FOR IV ANTIBIOTICS. PT AAOX4, VSS. RR EVEN & UNLABORED. DENIES ANY DISCOMFORT AT THIS TIME. PT AWARE THAT WE HAD TO PAGE PICC LINE RN. PT UNDERSTOOD WITH VERBAL UNDERSTANDING. WILL CONT TO MONITOR.
--- NOTE | 2018-09-29 18:02 | NUR ---
MIDLINE EVALUATED, UNABLE TO PROVIDE BLOOD RETURN AND FELT A RESISTANCE WHILE PUSHING NORMAL SALINE.
--- NOTE | 2018-09-29 19:04 | NUR ---
PT RESTING, RR EVEN & UNLABORED, NAD NOTED AT THIS TIME. STILL AWAITING FOR PICC LINE RN. PT AWARE.
--- NOTE | 2018-09-29 19:35 | NUR ---
KATELYNN PICC LINE RN ABLE TO FLUSHED & DRAW BLOOD ON ISHAN PICC LINE, STATES THAT ITS FUNCTIONING WELL & DOESN'T NEED TO CHANGE IT. DR. DANG AWARE.
--- NOTE | 2018-09-29 19:41 | NUR ---
[facility] TRANSPORT ETA 30-45MIN TRIP#[id number].
--- NOTE | 2018-09-29 20:05 | NUR ---
REPORT GIVEN TO AFIA LANIER AT [facility]. AWAITING BLS TRANSPORT BACK TO [facility].
[2018-09-29 20:42] VITALS: BP 138/85
== END 2018-09-29 20:42 ==
LOC: ER 14:53
DX: Z45.2 Encounter for adjustment and management of vascular access device (principal); Z88.6 Allergy status to analgesic agent
CPT/HCPCS: 71045-TC

== ENCOUNTER 2018-10-19 18:04 | Emergency (ER) | payer MEDICAID ==
[~2018-10-19] VITALS: Ht 182.9 cm; Wt 75.3 kg
--- NOTE | 2018-10-19 19:00 | NUR ---
PT PRESENTED TO THE ER WITH A C/O LT HIP PAIN. PT STATED THAT HE WAS NOT ABLE TO GET HIS MEDICATION WHEN DISCHARGED FROM THE HOSPITAL. PT AMBULATED TO ER #[id number] WITH A WALKER.
[2018-10-19] MEDS ORDERED: oxyCODONE/APAP (5/325 MG) 1 UDTAB TABLET ONE (19:28)
[2018-10-19] MEDS ORDERED: CEPHALEXIN MONOHYDRATE 500 MG CAPSULE PO ONE ×2 (19:29→19:30)
[2018-10-19] MEDS ORDERED: oxyCODONE/APAP (5/325 MG) 1 UDTAB TABLET PO ONE (19:30)
[2018-10-19 19:33] LABS: BASOPHILS % (AUTO) 0.4 % (0.0-2.0); EOSINOPHILS % (AUTO) 3.1 % (0.0-6.0); HEMATOCRIT 35 % (39-51); HEMOGLOBIN 11.3 g/dL (13.5-17.5); LYMPHOCYTES # (AUTO) 1.5 /CMM (0.8-4.8); LYMPHOCYTES % (AUTO) 38.3 % (20.0-44.0); MEAN CORPUSCULAR HGB CONC 33 g/dl (31.0-36.0); MEAN CORPUSCULAR VOLUME 80 fL (80-96); MONOCYTES # (AUTO) 0.3 /CMM (0.1-1.30); MONOCYTES % (AUTO) 7.7 % (2.0-12.0); NEUTROPHILS # (AUTO) 1.9 /CMM (1.8-8.9); NEUTROPHILS % (AUTO) 50.5 % (43.0-81.0); PLATELET COUNT (AUTO) 262 /CMM (150-450); RED BLOOD CELL COUNT(AUTO) 4.32 MIL/uL (4.5-6.0); WHITE BLOOD COUNT (AUTO) 3.8 K/uL (4.3-11.0)
[2018-10-19 19:40] LABS: CALCIUM, SERUM 8.8 mg/dL (8.5-10.1); CREATININE 1.5 mg/dL (0.6-1.3); POTASSIUM 3.9 mmol/L (3.5-5.1)
--- NOTE | 2018-10-19 20:53 | NUR ---
Patient discharged to home in stable condition. Written and verbal after care instructions given. Patient verbalizes understanding of instruction. PT REC'D A COPY OF HIS LABS. PT AMBULATED OUT WITH A STEADY GAIT. VSS.
[2018-10-19 20:58] VITALS: BP 119/68
== END 2018-10-19 20:59 | disposition home or self-care (01) ==
LOC: ER 18:04
DX: G89.29 Other chronic pain (principal); M25.552 Pain in left hip; F12.90 Cannabis use, unspecified, uncomplicated; I25.10 Atherosclerotic heart disease of native coronary artery without angina pectoris; D64.9 Anemia, unspecified; G47.00 Insomnia, unspecified; M16.10 Unilateral primary osteoarthritis, unspecified hip; Z88.6 Allergy status to analgesic agent; Z79.899 Other long term (current) drug therapy
CPT/HCPCS: 36415; 80048-TC; 85025-TC

== ENCOUNTER 2023-08-25 12:16 | Emergency (ER) | payer MEDICAID, OTHER ==
[~2023-08-25] VITALS: Ht 182.9 cm; Wt 91.2 kg
[2023-08-25] MEDS ORDERED: CYCLOBENZAPRINE 10 MG TABLET ONE (12:48)
[2023-08-25] MEDS ORDERED: oxyCODONE/APAP (5/325 MG) 1 UDTAB TABLET ONE (12:48)
[2023-08-25] MEDS: CYCLOBENZAPRINE 10 MG TABLET PO ONE (12:52)
[2023-08-25] MEDS: oxyCODONE/APAP (5/325 MG) 1 UDTAB TABLET PO ONE (12:52)
[2023-08-25] MEDS ORDERED: CYCL5TAB PO (13:15)
[2023-08-25 13:44] VITALS: BP 132/68; TEMP 98.2; O2SAT 100
== END 2023-08-25 13:45 | disposition home or self-care (01) ==
LOC: ER 12:20
DX: M54.2 Cervicalgia (principal); M19.90 Unspecified osteoarthritis, unspecified site; Z88.8 Allergy status to other drugs, medicaments and biological substances; Z79.899 Other long term (current) drug therapy